=== PATIENT | female | born 2000 | race Caucasian/White ===

== ENCOUNTER 2024-04-10 06:19 | Emergency (ER) | payer OTHER, SELFPAY ==
[2024-04-10 06:23] VITALS: BP 132/90
--- NOTE | 2024-04-10 07:14 | ED.GENMED ---
History of Present Illness
General
Chief Complaint: Musculo-Skeletal Complaint
Source: patient
Time Seen by Provider: 04/10/24 06:48
Travel History
Have you had any contact with someone who has COVID-19?: No
Do you have any symptoms of coronavirus? Fever > 100 degrees, chills, cough, shortness of breath, sore throat, loss of taste or smell, muscle aches, or headache?: No
History of Present Illness
History of Present Illness:
23-year-old female with no significant past medical history presenting to the emergency department for evaluation of atraumatic right knee pain that started around 1 week ago while running. Patient states that she cannot think of any specific time
she injured her knee but believes she may have pushed a little bit too hard while she was running. Patient states she is more of a beginner runner and thinks this may have played a role. She denies any fevers, traumatic injuries, focal weakness or
numbness or any other concerns. Pain is mainly along the medial aspect of the knee, worse with valgus stress and without any overlying skin changes.
Past History
Past History
ED Past Medical History: Psychiatric
ED Past Surgical History: None
Social History
Tobacco: Non-smoker
Alcohol: None
Drug: None
Personal: Single
Living: with family
Employment: Student
Review of Systems
Review of Systems
All Other Systems: ROS reviewed and negative except as documented in HPI and ROS
Phy Exam
Physical Exam
Physical Exam:
GENERAL: Alert , in no apparent distress
EYE: conjunctiva clear
Head: Normocephalic atraumatic
NECK: Supple,
ENT: mmm.
LUNGS: no acute respiratory distress
NEUROLOGICAL: Alert and oriented
SKIN: Warm and dry, skin intact.
MUSCULOSKELETAL: Right knee: No obvious deformity, erythema, edema, ecchymosis, abrasions or lacerations. Patient allows for full active and passive range of motion with minimal difficulty. There is tenderness along the medial aspect of the
patella at the patellofemoral joint line. Tenderness with valgus stress but otherwise no laxity within the joint. No effusions appreciated.
PSYCH: Normal and appropriate interaction.
Scores
Heart Failure Risk
Heart Failure Risk Score: Not Applicable
Heart Score for Chest Pain Patients
STEMI patient?: Not applicable
Withdrawal Assessment of Alcohol
Withdrawal Assessment Completed?: Not applicable
Course
Orders/Labs/Results
Orders:
Orders
04/10/24 06:27
Knee, Right 4 or More Views [CR Knee- Right 4 Or More View*] Urgent
Comment:
Reason For Exam: injury
04/10/24 07:14
Lidocaine [Lidocaine 4% Patch] 1 patch TOPICAL NOW STA
Vital Signs
Initial and Last Documented VS:
Initial Vital Signs
Temp Pulse Resp BP Pulse Ox
98.9 F 92 20 132/90 98
04/10/24 06:23 04/10/24 06:23 04/10/24 06:23 04/10/24 06:23 04/10/24 06:23
Last Documented Vital Signs
Temp Pulse Resp BP Pulse Ox
98.9 F 92 20 132/90 98
04/10/24 06:23 04/10/24 06:23 04/10/24 06:23 04/10/24 06:23 04/10/24 06:23
MDM/Problems Addressed
Differential Diagnosis Includes:
Strain, sprain, meniscus injury, patellofemoral syndrome, no signs of infection
MDM/Problems Addressed:
23-year-old female presenting to the emergency department for atraumatic right knee pain that started after running about 1 week ago. No specific injury occurred at the time of injury. Patient has been taken [id number] medications with
minimal relief. Pain is mostly along the medial aspect of the knee and worse with valgus stress. No laxity within the joint. Patient did not have mechanism for an MCL injury. X-ray was ordered from triage and is ultimately negative for any acute
pathologies. Advised continued compression, ice and elevation, NSAIDs/Tylenol as needed for pain. Patient may also use topical agents to help with pain relief. Information provided for orthopedics for patient to follow-up with. Stable for
discharge home
*Radiology
Radiology exam reviewed: preliminary read by ED provider (No acute fracture)
*Pulse Oximetry
Patient hypoxic: no
*Critical Care Note
Total Time (30-74mins, 75-104mins- exclusive of procedures): Not Applicable
ED Attending Note
-
Portions of this chart may have been created with voice recognition software.� Occasional wrong word or��sound alike� substitutions may have occurred due to the inherent limitations of voice recognition software.
Discharge Plan
Departure
Patient Disposition: Home (Routine Discharge)
Date of Disposition: 04/10/24
Time of Disposition: 07:15
Patient with high blood pressure during this ER visit?: Yes
Discharge Problem:
Knee pain, right
Instructions: Knee Pain (DC)
Referrals:
Ryan Frias MD [Active] - (Ortho)
Stand Alone Forms: Back to School
Interventions
Interventions:
*Risk Screen - Suicide Last Done: 04/10/24 06:23
*General Assessment Last Done: 04/10/24 06:23
*Neglect/Abuse Screening Last Done: 04/10/24 06:23
ED- Fall Risk Assessment Last Done: 04/10/24 06:23
*ED COVID-19 Vaccine History Last Done: 04/10/24 06:23
*Nursing Disposition Last Done: 04/10/24 07:30
ED-Musculoskeletal Assessment Last Done: 04/10/24 06:57
Discharge Date and Time
Discharge Date/Time: 04/10/24 07:31
Print Language: PASHTO
[2024-04-10] MEDS: LIDOCAINE 4% PATCH 1 PATCH TOPICAL (07:24)
== END 2024-04-10 07:31 | disposition home or self-care (01) ==
LOC: EMR 06:19
PROVIDERS: EMERGENCY PHYSICIAN Emergency Medicine
DX: M25.561 Pain in right knee (principal)
CPT/HCPCS: 99283; 73564